=== PATIENT | female | born 1975 | race Asian ===

== ENCOUNTER 2016-11-20 16:04 | Emergency (ER) | payer SELFPAY ==
[~2016-11-20] VITALS: Ht 154.9 cm; Wt 63.6 kg
[2016-11-20 16:20] VITALS: BP 159/99
[2016-11-20] MEDS ORDERED: B12/1TAB PO (16:25)
== END 2016-11-20 17:49 | disposition left against medical advice (07) ==
LOC: EMS 16:06
DX: R20.0 Anesthesia of skin (principal); Z53.21 Procedure and treatment not carried out due to patient leaving prior to being seen by health care provider

== ENCOUNTER 2018-10-21 06:29 | Emergency (ER) | payer OTHER ==
[~2018-10-21] VITALS: Ht 154.9 cm; Wt 65.9 kg
[~2018-10-21 06:29] MED LIST: B12/1TAB PO
[2018-10-21 09:08] VITALS: BP 151/95
== END 2018-10-21 09:25 | disposition home or self-care (01) ==
LOC: EMS 06:30
DX: G56.03 Carpal tunnel syndrome, bilateral upper limbs (principal); R20.2 Paresthesia of skin

== ENCOUNTER 2018-11-12 17:08 | Emergency (ER) | payer OTHER ==
[~2018-11-12] VITALS: Ht 154.9 cm; Wt 72.7 kg
[2018-11-12] MEDS ORDERED: DIPH25 PO (17:19)
[2018-11-12] MEDS ORDERED: IBUP-2071 PO (17:19)
[2018-11-12] MEDS ORDERED: HydrOXYzine HCL 25 MG TABLET PO ONE (17:45)
[2018-11-12] MEDS ORDERED: PredniSONE 20 MG TABLET PO ONE (17:45)
[2018-11-12 20:06] VITALS: BP 167/113
== END 2018-11-12 21:07 | disposition home or self-care (01) ==
LOC: EMS 17:09
DX: R21 Rash and other nonspecific skin eruption (principal); Z79.899 Other long term (current) drug therapy; W57.XXXA Bitten or stung by nonvenomous insect and other nonvenomous arthropods, initial encounter; Y93.89 Activity, other specified; Y92.89 Other specified places as the place of occurrence of the external cause; Y99.8 Other external cause status
CPT/HCPCS: 81025; 99283; J7512

== ENCOUNTER 2020-12-09 12:32 | Emergency (ER) | payer OTHER ==
[~2020-12-09] VITALS: Ht 157.5 cm; Wt 84.1 kg
[~2020-12-09 12:32] MED LIST changes: -B12/1TAB PO; +DIPH25 PO; +IBUP-2071 PO
[2020-12-09 14:24] LABS: COVID AG,FIA SOURCE NASOPHARYNGEAL
[2020-12-09] MEDS ORDERED: IOVERSOL 350 MG/ML 100 ML VIAL ONE (14:45)
[2020-12-09] MEDS ORDERED: SODIUM CHLORIDE 0.9% 2,500 ML IV ONE (14:45)
[2020-12-09] MEDS ORDERED: 0.9% SODIUM CHLORIDE 10 ML SYRINGE IVP PRN (14:45)
[2020-12-09] MEDS ORDERED: ACETAMINOPHEN 325 MG TABLET PO ONE (14:45)
[2020-12-09] MEDS ORDERED: HYDROCODONE/ACETAMINOPHEN 5-325 MG TABLET PO ONE (14:45)
[2020-12-09] MEDS ORDERED: SODIUM CHLORIDE 0.9% 100 ML ONE (14:45)
[2020-12-09 15:45] LABS: BASOPHILS % (AUTO) 0.8 % (0.0-2.0); EOSINOPHILS % (AUTO) 4.3 % (1.0-6.0); HEMATOCRIT 34.9 % (36-46); LYMPHOCYTES # (AUTO) 0.4 K/uL (1.0-4.8); LYMPHOCYTES % (AUTO) 5.7 % (22.0-44.0); MEAN CORPUSCULAR HEMOGLOBIN 23.9 pg (26.0-34.0); MEAN CORPUSCULAR HGB CONC 31.5 G/dL (31.0-37.0); MEAN CORPUSCULAR VOLUME 76 fL (80-100); MONOCYTES # (AUTO) 0.5 K/uL (0.1-1.0); MONOCYTES % (AUTO) 6.6 % (2.0-9.0); NEUTROPHILS # (AUTO) 6.1 K/uL (1.8-7.7); NEUTROPHILS % (AUTO) 82.6 % (40.0-70.0); PLATELET COUNT (AUTO) 219 K/uL (150-450); RED CELL DISTRIBUTION WIDTH 17.1 % (11.5-14.5)
[2020-12-09 15:51] LABS: INFLUENZA TYPE A NEGATIVE FOR TYPE A (NEGATIVE); INFLUENZA TYPE B NEGATIVE FOR TYPE B (NEGATIVE)
[2020-12-09 15:58] LABS: ANION GAP 10 mmol/L (8-16); CALCIUM, TOTAL 8.4 mg/dL (8.8-10.5); CARBON DIOXIDE 27 mmol/L (22-29); CHLORIDE 99 mmol/L (98-107); CREATININE 0.72 mg/dL (0.60-1.30); GLOMERULAR FILTR. RATE CALC > 60 mL/min (>60); GLUCOSE,RANDOM 115 mg/dL (70-110); POTASSIUM 3.5 mmol/L (3.5-5.1); SODIUM SERUM 136 mmol/L (136-145); UREA NITROGEN, BLOOD 11 mg/dL (7-18)
[2020-12-09 16:02] LABS: INR 1.1 (0.9-1.1); PROTHROMBIN TIME 11.8 SEC (9.4-11.6)
[2020-12-09 16:09] LABS: ALANINE AMINOTRANSFERASE 105 U/L (12-78); ALBUMIN 3.3 g/dL (3.4-5.0); ALKALINE PHOSPHATASE 188 U/L (46-116); ASPARTATE AMINOTRANSFERASE 73 U/L (15-37); BILIRUBIN,TOTAL 0.4 mg/dL (0.1-1.0); CREATINE KINASE, TOTAL ONLY 59 U/L (26-192); HCG,QUANTITATIVE < 1 mIU/mL (0-6); TOTAL PROTEIN, SERUM 8.3 g/dL (6.4-8.2)
[2020-12-09 16:19] LABS: LACTIC ACID 1.1 mmol/L (0.4-2.0)
[2020-12-09 19:00] LABS: APPEARANCE,URINE CLOUDY (CLEAR); BILIRUBIN,URINE NEGATIVE (NEGATIVE); GLUCOSE, URINE (UA) NEGATIVE (NEGATIVE); KETONES,URINE 15 mg/dL (NEGATIVE); LEUKOCYTE ESTERASE ,URINE NEGATIVE (NEGATIVE); NITRATE,URINE POSITIVE (NEGATIVE); OCCULT BLOOD,URINE TRACE (NEGATIVE); PH,URINE 6.5 (5.0-8.0); PROTEIN,URINE POS 1+ (NEGATIVE)
[2020-12-09 19:08] LABS: BACTERIA,URINE Many /HPF (None Seen)
[2020-12-09 19:09] LABS: RBC,URINE 0-2 /HPF (0-2); SQUAMOUS EPITHELIAL CELL,UR Moderate /LPF (None Seen)
[2020-12-09 19:26] VITALS: BP 139/92
== END 2020-12-09 19:30 | disposition home or self-care (01) ==
LOC: EMS 12:44
DX: J18.9 Pneumonia, unspecified organism (principal); M54.2 Cervicalgia; Z20.822 Contact with and (suspected) exposure to COVID-19; Z79.899 Other long term (current) drug therapy
CPT/HCPCS: 36415; 70450; 70491; 71045; 80053; 81001; 82550; 83605; 84145; 84484; 84702; 85025; 85610; 85730; 87040; 87077; 87086; 87186; 87426; 87804; 93005; 96360; 96361; 99285; J7030; J7050; Q9967; U0003